=== PATIENT | male | born 1945 | race Caucasian/White ===

== ENCOUNTER 2024-04-18 19:41 | Emergency (ER) | payer OTHER, SELFPAY ==
--- NOTE | 2024-04-18 19:43 | ED.PDOC.TRB ---
ED Provider Triage
-
Patient seen by provider in Triage?: Seen in Triage
This is a 78 year old male that comes in with c/o a closed up ear. States that this started 2 days ago and he feels a little off balance. States that he went to the PCP and he was given Drops but she did not flush the ear out. Denies any headache.
[2024-04-18 19:45] VITALS: BP 174/108
--- NOTE | 2024-04-18 20:43 | ED.GENMED ---
History of Present Illness
General
Chief Complaint: Ear Problem
Source: patient
Time Seen by Provider: 04/18/24 20:13
History of Present Illness
History of Present Illness:
78-year-old male who presents with left ear pain. He went to his doctor and had drops of feels like that maybe they are not getting in. Ear pain is persistent and does have difficulty hearing out of it. Denies any foreign bodies.
Past History
Past History
ED Past Medical History: GERD, HTN and Other (arthritis)
ED Past Surgical History: Orthopedic
Social History
Tobacco: Former smoker
Alcohol: None
Drug: None
Personal:
Living: with family
Phy Exam
Physical Exam
Physical Exam:
CONSTITUTIONAL Vital signs reviewed, Patient alert and oriented to person, place and time. Well-appearing
HEAD atraumatic, normocephalic.
EYES eyelids normal to inspection, Extraocular muscles intact, Conjunctiva normal, Sclera normal.
ENT left canal is swollen with some debris in the canal. Unable to visualize the TM. He does have pain when attempting to enter the canal with speculum. There is no redness to his pinna.
NECK normal range of motion, Trachea midline, no jugular venous distention.
RESP no respiratory distress
BACK No obvious deformities
UPPER EXTREMITY Gross Range of motion normal, gross motor strength normal
LOWER EXTREMITY Gross range of motion normal, Gross motor strength normal
NEURO Speech normal, No focal motor deficits include, Pieter coma scale 15, Memory normal, Cranial Nerves intact to screening exam.
SKIN Skin warm, dry, and normal in color.
PSYCHIATRIC Patient oriented to person place and time, Normal affect.
Course
Orders/Labs/Results
Orders:
Orders
04/18/24 20:38
Amoxicillin 875 mg/Clav 125 mg [Augmentin 875 mg/125 mg] 1 tablet PO NOW STA
Vital Signs
Initial and Last Documented VS:
Initial Vital Signs
Temp Pulse Resp BP Pulse Ox
97.8 F 96 18 174/108 97
04/18/24 19:45 04/18/24 19:45 04/18/24 19:45 04/18/24 19:45 04/18/24 19:45
Last Documented Vital Signs
Temp Pulse Resp BP Pulse Ox
97.8 F 96 18 174/108 97
04/18/24 19:45 04/18/24 19:45 04/18/24 19:45 04/18/24 19:45 04/18/24 19:45
MDM/Problems Addressed
MDM/Problems Addressed:
Otitis externa, possible otitis media
Acute Exacerbation and/or Progression of Chronic Illness: HTN
*Pulse Oximetry
Patient hypoxic: no
*Critical Care Note
Total Time (30-74mins, 75-104mins- exclusive of procedures): Not Applicable
Data Reviewed
Source: patient and family
Patient Management
Escalation/DeEscalation of care consider admission/obs:
Procedure: Ear wick placed in the left ear canal. No complication
Ear wick placed. Continue drops but add oral antibiotics as I cannot visualize his TM. Okay for outpatient management
ED Attending Note
-
Portions of this chart may have been created with voice recognition software.� Occasional wrong word or��sound alike� substitutions may have occurred due to the inherent limitations of voice recognition software.
Discharge Plan
Departure
Date of Disposition: 04/18/24
Time of Disposition: 20:43
Patient with high blood pressure during this ER visit?: Yes
Instructions: Outer Ear Infection ED, BLOOD PRESSURE
Prescriptions:
New
amoxicillin-pot clavulanate 875-125 mg tablet
1 tab PO BID Qty: 20 0RF
No Action
celecoxib 200 mg capsule
200 mg PO BIDPRN PRN (Reason: mild pain)
metformin 500 mg tablet
1,000 mg PO BID@0800,1700
cetirizine [Zyrtec] 10 mg Tablet
10 mg PO HS
Theragen Tablet
1 tab PO DAILY
aspirin 81 mg tablet,delayed release (DR/EC)
81 mg PO BID
acetaminophen [Tylenol Extra Strength] 500 mg Tablet
1,000 mg PO Q6HPRN PRN (Reason: mild pain)
ondansetron 4 mg tablet,disintegrating
4 mg PO QIDPRN PRN (Reason: nausea)
losartan 100 mg tablet
100 mg PO DAILY
PreserVision AREDS 2,148 mcg-113 mg-45 mg-17.4mg Tablet
1 tab PO BID
cephalexin 500 mg capsule
500 mg PO Q6H 7 Days Qty: 28 0RF
Activity Restrictions/Additional Instructions:
Continue your antibiotic eardrops with 4 drops twice a day for 7 days. Again, lay with your right ear on the bed and allow the drops to sit and absorb. Return immediately for fevers, worsening pain, redness of the ear or any other concerns.
Interventions
Interventions:
*Risk Screen - Suicide Last Done: 04/18/24 19:45
*General Assessment Last Done: 04/18/24 19:45
*Neglect/Abuse Screening Last Done: 04/18/24 19:45
ED- Fall Risk Assessment Last Done: 04/18/24 19:45
*ED COVID-19 Vaccine History Last Done: 04/18/24 19:45
Discharge Date and Time
Print Language: CITIZEN [place]
[2024-04-18] MEDS: AUGMENTIN 875 MG/125 MG 1 TABLET PO (20:57)
[2024-04-18 20:58] VITALS: BP 160/86
== END 2024-04-18 21:00 | disposition home or self-care (01) ==
LOC: EMR 19:41
PROVIDERS: EMERGENCY PHYSICIAN Emergency Medicine; FAMILY PHYSICIAN Physician Assistant Medical
DX: H60.502 Unspecified acute noninfective otitis externa, left ear (principal); K21.9 Gastro-esophageal reflux disease without esophagitis; I10 Essential (primary) hypertension; Z87.891 Personal history of nicotine dependence
CPT/HCPCS: 99282

== ENCOUNTER → 2025-06-22 06:44 | Outpatient (REF) | payer OTHER, SELFPAY | LOC: MRI 06:44 | PROVIDERS: ATTENDING PHYSICIAN Physician Assistant Medical | DX: R26.81 Unsteadiness on feet (principal); R42 Dizziness and giddiness | CPT/HCPCS: 70551 ==